=== PATIENT | male | born 1965 | race Caucasian/White ===

== ENCOUNTER 2018-01-27 13:50 | Emergency (ER) | payer MEDICARE, OTHER ==
[~2018-01-27] VITALS: Ht 190.5 cm; Wt 114.7 kg
[~2018-01-27 13:50] MED LIST: ASPI81 PO; CYCL-36 PO; IBUP600T26 PO; NEBI5 PO; NEXI40CA PO; OXYC-68 PO; PLAV75TA PO; ROSU20 PO
[2018-01-27 13:55] VITALS: BP 149/81; PULSE 122; RESP 26; TEMP 98.1; O2SAT 97
--- NOTE | 2018-01-27 14:11 | PD ---
HPI Chief Complaint: GI Complaint Time Seen by Provider: 14:04 Travel History International Travel<30 days: No Contact w/Intl Traveler<30days: No Traveled to known affect area: No History of Present Illness HPI This 52-year-old male is complaining of vomiting and diarrhea. Symptoms started this morning and have been quite severe. He has been unable to hold anything down. He has some abdominal pain when he vomits. He does not recall eating anything unusual. He has not felt very well since he had a bypass a couple of years ago. PFSH Past Medical History Hx Anticoagulant Therapy: Yes Cancer: No Cardiovascular Problems: Yes (HI, [address] WAY BY PASS, STENTS) High Cholesterol: Yes Diabetes: Yes Endocrine: No Genitourinary: No Hepatitis: No Hiatal Hernia: No Immune Disorder: No Musculoskeletal: Yes (ARTHRITIS, HERNIATED NUCLEUS PULPOSIS LUMBAR) Neurologic: Yes (CHARISSE. CHR. LEG & BACK PAIN) Psychiatric: No Respiratory: Yes (SLEEP APNEA/ CPAP) Myocardial Infarction: Yes Thyroid Disease: No Past Surgical History Abdominal Surgery: Yes (RIGHT ING. HERNIA REP) AICD: No Body Medical Devices: PULSE GENERATOR, CARDIAC STENT Cardiac Surgery: Yes (HEART CATH; INSERTION CARDIAC STENT) Ear Surgery: No Endocrine Surgery: No Eye Surgery: No Genitourinary Surgery: No Joint Replacement: No Oral Surgery: Yes (DENTURES; TEETH) Pacemaker: No Thoracic Surgery: No Other Surgery: Yes (HERNIA REPAIR) Social History Alcohol Use: Yes (ONCE A MONTH) Tobacco Use: Yes (1/2 PACK DAILY X 25 YEARS) Substance Use: No Allergies-Medications (Allergen,Severity, Reaction): Coded Allergies: No Known Allergies (Verified Adverse Reaction, Unknown, 01/27/18) Reported Meds & Prescriptions Reported Meds & Active Scripts Active Reported Ibuprofen 600 Mg Tab 600 Mg PO Q6H PRN Oxycodone-Acetaminophen 10-325 mg Tab 1 Tab PO Q6H PRN Aspirin 81 Mg Chew 81 Mg CHEW ONCE Plavix (Clopidogrel Bisulfate) 75 Mg Tab 75 Mg PO DAILY Simvastatin 40 Mg Tab 40 Mg PO HS Nexium (Esomeprazole DR) 40 Mg Capdr 40 Mg PO DAILY Carvedilol 6.25 Mg Tab 6.25 Mg PO BID Review of Systems General / Constitutional: No: Fever, Chills Eyes: No: Diploplia, Blurred Vision HENT: No: Headaches, Vertigo, Rhinorrhea Cardiovascular: No: Chest Pain or Discomfort, Palpitations Respiratory: No: Cough, Shortness of Breath Gastrointestinal: Positive: Vomiting, Diarrhea Genitourinary: No: Frequency, Dysuria Musculoskeletal: No: Myalgias, Arthralgias Skin: No Rash, No Itching Neurologic: No: Weakness, Dizziness Psychiatric: No: Anxiety Hematologic/Lymphatic: No: Easy Bruising Physical Exam Narrative GENERAL: Well-developed male SKIN: Focused skin assessment warm/dry. HEAD: Atraumatic. Normocephalic. EYES: Pupils equal and round. No scleral icterus. No injection or drainage. ENT: No nasal bleeding or discharge. Mucous membranes pink and moist. NECK: Trachea midline. No JVD. CARDIOVASCULAR: Regular rate and rhythm. No murmur appreciated. RESPIRATORY: No accessory muscle use. Clear to auscultation. Breath sounds equal bilaterally. GASTROINTESTINAL: Abdomen soft, non-tender, nondistended. Hepatic and splenic margins not palpable. He has a bump in the abdominal MUSCULOSKELETAL: No obvious deformities. No clubbing. No cyanosis. No edema. NEUROLOGICAL: Awake and alert. No obvious cranial nerve deficits. Motor grossly within normal limits. Normal speech. PSYCHIATRIC: Appropriate mood and affect; insight and judgment normal. Data Data Last Documented VS Vital Signs Date Time Temp Pulse Resp B/P (MAP) Pulse Ox O2 Delivery O2 Flow Rate FiO2 01/27/18 14:57 99.7 109 98 01/27/18 14:22 16 Room Air Orders Orders Complete Blood Count With Diff (01/27/18 14:07) Comprehensive Metabolic Panel (01/27/18 14:07) Sodium Chlor 0.9% 1000 Ml Inj (Ns 1000 M (01/27/18 14:15) Ondansetron Inj (Zofran Inj) (01/27/18 14:15) Prochlorperazine Inj (Compazine Inj) (01/27/18 15:15) Labs Laboratory Tests Test 01/27/18 14:15 White Blood Count 11.1 TH/MM3 Red Blood Count 5.50 MIL/MM3 Hemoglobin 15.1 GM/DL Hematocrit 47.1 % Mean Corpuscular Volume 85.7 FL Mean Corpuscular Hemoglobin 27.6 PG Mean Corpuscular Hemoglobin Concent 32.2 % Red Cell Distribution Width 12.8 % Platelet Count 278 TH/MM3 Mean Platelet Volume 7.4 FL Neutrophils (%) (Auto) 86.8 % Lymphocytes (%) (Auto) 5.8 % Monocytes (%) (Auto) 4.4 % Eosinophils (%) (Auto) 0.8 % Basophils (%) (Auto) 2.2 % Neutrophils # (Auto) 9.7 TH/MM3 Lymphocytes # (Auto) 0.6 TH/MM3 Monocytes # (Auto) 0.5 TH/MM3 Eosinophils # (Auto) 0.1 TH/MM3 Basophils # (Auto) 0.2 TH/MM3 CBC Comment DIFF FINAL Differential Comment Blood Urea Nitrogen 18 MG/DL Creatinine 0.97 MG/DL Random Glucose 148 MG/DL Total Protein 7.5 GM/DL Albumin 3.4 GM/DL Calcium Level 9.1 MG/DL Alkaline Phosphatase 84 U/L Aspartate Amino Transf (AST/SGOT) 40 U/L Alanine Aminotransferase (ALT/SGPT) 34 U/L Total Bilirubin 0.6 MG/DL Sodium Level 136 MEQ/L Potassium Level 4.1 MEQ/L Chloride Level 104 MEQ/L Carbon Dioxide Level 24.4 MEQ/L Anion Gap 8 MEQ/L Estimat Glomerular Filtration Rate 81 ML/MIN [facility] Medical Decision Making Medical Screen Exam Complete: Yes Emergency Medical Condition: Yes Medical Record Reviewed: Yes Differential Diagnosis Differential includes gastroenteritis, food poisoning, dehydration Narrative Course Patient was given IV fluids and Zofran. Still nauseated after the selective Compazine. After this he has been able to tolerate a fluid challenge. Diagnosis Primary Impression: Acute gastroenteritis Additional Instructions: Clear liquid 6 hours Scripts Ondansetron Odt (Zofran Odt) 4 Mg Tab 4 MG SL Q6HR Y for Nausea/Vomiting, #10 TAB 0 Refills Prov: Bijan Orourke MD 01/27/18 Disposition: 01 DISCHARGE HOME Condition: Stable Bijan Orourke MD Jan 27, 2018 14:11
[2018-01-27] MEDS ORDERED: OXYC1TAB36 PO (14:15)
[2018-01-27] MEDS ORDERED: CARV6.252 PO (14:15)
[2018-01-27] MEDS ORDERED: SIMV40TA PO (14:15)
[2018-01-27] MEDS ORDERED: SODIUM CHLOR 0.9% 1000 ML INJ 1,000 ML IV ONE (14:15)
[2018-01-27] MEDS ORDERED: PLAV75TA29 PO (14:15)
[2018-01-27] MEDS ORDERED: NEXI40CA PO (14:15)
[2018-01-27] MEDS ORDERED: ASPI-516 CHEW (14:15)
[2018-01-27] MEDS ORDERED: IBUP-232 PO (14:15)
[2018-01-27] MEDS ORDERED: ONDANSETRON HCL 4 MG/2 ML VIAL IV PUSH ONE (14:15)
[2018-01-27 14:21] LABS: AUTOMATED NEUTROPHIL # 9.7 TH/MM3 (1.8-7.7); BASOPHIL # 0.2 TH/MM3 (0-0.2); BASOPHIL % 2.2 % (0.0-2.0); EOSINOPHIL # 0.1 TH/MM3 (0-0.4); EOSINOPHIL % 0.8 % (0.0-4.0); HEMATOCRIT 47.1 % (39.0-51.0); HEMOGLOBIN 15.1 GM/DL (13.0-17.0); LYMPH % 5.8 % (9.0-44.0); LYMPHOCYTE # 0.6 TH/MM3 (1.0-4.8); MEAN CELL VOLUME 85.7 FL (80.0-100.0); MEAN CORPUSCULAR HEMOGLOBIN 27.6 PG (27.0-34.0); MEAN CORPUSCULAR HGB CONC 32.2 % (32.0-36.0); MEAN PLATELET VOLUME 7.4 FL (7.0-11.0); MONO % 4.4 % (0.0-8.0); MONOCYTE # 0.5 TH/MM3 (0-0.9); NEUT % 86.8 % (16.0-70.0); PLATELET COUNT 278 TH/MM3 (150-450); RED CELL DISTRIBUTION WIDTH 12.8 % (11.6-17.2); WHITE BLOOD COUNT 11.1 TH/MM3 (4.0-11.0)
[2018-01-27 14:22] VITALS: BP 152/90; PULSE 110; RESP 16; TEMP 99.4; O2SAT 94
[2018-01-27 14:30] LABS: CHLORIDE 104 MEQ/L (98-107); SODIUM (NA) 136 MEQ/L (136-145)
[2018-01-27 14:33] LABS: CALCIUM 9.1 MG/DL (8.5-10.1)
[2018-01-27 14:34] LABS: ALBUMIN 3.4 GM/DL (3.4-5.0); BICARBONATE 24.4 MEQ/L (21.0-32.0); BLOOD UREA NITROGEN 18 MG/DL (7-18); GLUCOSE,RANDOM 148 MG/DL (74-106)
[2018-01-27 14:37] LABS: ALT (GPT) 34 U/L (12-78); AST (GOT) 40 U/L (15-37); CREATININE 0.97 MG/DL (0.60-1.30); GLOMERULAR FILTRATION RATE 81 ML/MIN (>89)
[2018-01-27 14:38] LABS: TOTAL BILIRUBIN ADULT 0.6 MG/DL (0.2-1.0); TOTAL PROTEIN 7.5 GM/DL (6.4-8.2)
[2018-01-27 14:40] LABS: ALKALINE PHOSPHATASE 84 U/L (45-117)
[2018-01-27 14:57] VITALS: PULSE 109; TEMP 99.7; O2SAT 98
[2018-01-27] MEDS ORDERED: PROCHLORPERAZINE INJ 10 MG/2 ML VIAL IV PUSH ONE (15:15)
[2018-01-27] MEDS ORDERED: ZOFR4TAB3 SL (15:39)
== END 2018-01-27 16:14 | disposition home or self-care (01) ==
LOC: PHED 13:50
DX: K52.9 Noninfective gastroenteritis and colitis, unspecified (principal); F17.200 Nicotine dependence, unspecified, uncomplicated; E78.00 Pure hypercholesterolemia, unspecified; I25.2 Old myocardial infarction
CPT/HCPCS: 80053; 85025; 96361; 96374; 96375; 99284; J0780; J2405; J7030

== ENCOUNTER 2018-08-30 05:05 | Inpatient (IN) ==
--- NOTE | 2018-08-29 12:26 | MH ---
cc: Darrell Contreras MD DATE OF ADMISSION: 08/30/2018 SCHEDULED ADMISSION: 08/30/2018 ADMITTING DIAGNOSIS: Osteoarthritis, left knee. HISTORY OF PRESENT ILLNESS: The patient is a 53-year-old white male who has experienced greater than a 1-1/2-year history of pain involving his left knee. He had noted the gradual onset of his discomfort, unrelated to injury or unusual activity, and had subsequently undergone orthopedic evaluation, initially being seen by Dr. Garber for which he received cortisone injections to the left knee as well as a course of viscosupplementation. Unfortunately, the patient was unable to appreciate any significant improvement, and because of a change in insurance coverage he was seen in followup disposition by Dr. Hendrickson who treated him with additional cortisone injections as well as several aspirations of his knee joint. He later underwent arthroscopic surgery in 05/2018, again as being completed by Dr. Hendrickson, which apparently included a partial medial and lateral meniscectomy and chondroplasty of the medial compartment and patellofemoral articulation. A synovectomy with resection of synovial plica was reported. Unfortunately, the patient was unable to appreciate any improvement of his symptoms and postoperatively experienced recurrent and consistent clicking sensation of his left knee associated with swelling, for which he was carried through a course of therapy intervention and later fitted with an orthotic support. He experienced progressive pain about his left knee that limited all weightbearing activities and was later seen by the undersigned physician in third opinion evaluation, at which time he described ongoing pain, generalized about his left knee that was limiting all weightbearing activities. He had been taking oxycodone for a longstanding history of low back pain that was not affording any appreciable improvement of his knee symptoms. X-ray studies revealed obvious degenerative changes with [id number] apposition about the medial compartment associated with what appeared to be an osteochondral defect of the adjacent medial femoral condyle. Findings and treatment options were reviewed. The pros and cons of continued conservative management versus operative intervention involving total knee arthroplasty were outlined. Emphasis was made regarding the fact that the decision to proceed with surgery would be left entirely to the patient's discretion. The patient readily admitted that he felt he had exhausted all modes of conservative treatment, and given the progressive nature of his pain and associated incapacitation was ready to proceed with operative treatment as discussed. In compliance with his wishes, he was scheduled for admission at this time in order that the above be accomplished. PAST MEDICAL HISTORY, HOSPITALIZATIONS AND SURGERIES: In addition to the arthroscopic surgery of his left knee as described have included cardiac stent insertion followed by 4-vessel bypass surgery, right inguinal herniorrhaphy, lumbar spine surgery x2, which included fusion, insertion of a spinal cord stimulator, colonoscopy, and overnight observation for medical management of bleeding as related to apparent cardiac study. The patient's medical illnesses include heart disease and hypertension, elevated cholesterol and acid reflux. CURRENT MEDICATIONS: 1. Carvedilol 12.5 mg daily. 2. Lasix 40 mg daily. 3. Lisinopril. 4. Nexium 4 mg daily. 5. Plavix 75 mg daily. 6. Simvastatin 40 mg daily. 7. Aspirin 81 mg tablet daily. 8. Oxycodone 10/325 p.r.n. pain. ALLERGIES: THE PATIENT DENIES ANY KNOWN DRUG ALLERGIES. REVIEW OF SYSTEMS: He does wear glasses. Denies headache, seizure, or syncope. Occasional sinus congestion. No epistaxis. Auditory acuity intact. No tinnitus. No bleeding gums or dysphagia. Complete upper dentures. Denies cough, shortness of breath, upper respiratory infection, pneumonia, or tuberculosis. No angina. He is medically managed for hypertension and is status post cardiac bypass surgery. Appetite is good. Bowel movements are regular. No hepatitis, gallbladder disease or ulcers. There is a positive history of hemorrhoids. No urinary tract infection, no kidney stones, no prostate disease. No previous fractures. No psychiatric illness. His remaining review of systems is unremarkable and noncontributory. FAMILY HISTORY: 18 years, this being a second marriage. His is 65 years of age and described as being in good health. He has 3 daughters by a previous marriage, all indicated to be in good health. Family history is otherwise positive for hypertension, diabetes and heart disease. SOCIAL HISTORY: The patient completed 2 years of a college education. He previously was employed as an automotive person in a manufacturing plant. He has been disabled for the past 12 years as related to his lumbar spine condition. He denies active use of tobacco for the past year, but had been at least a 1 pack per day user for almost 35 years previous. Denies ethanol consumption. PHYSICAL EXAMINATION: VITAL SIGNS: Height 6 feet 3 inches, weight 249 pounds. GENERAL: An alert, oriented, and responsive 53-year-old white male who sits quietly upon the examination table with no obvious distress. HEAD, EARS, EYES, NOSE AND THROAT: Pupils are equally round and reactive to light. Extraocular movements full. Sclerae are clear. External nares clear. External auditory canals clear. Edentulous in the maxillary distribution. Mucous membranes pink and moist. Pharynx clear. NECK: Supple. Active range of motion without appreciable pain. Carotid pulse is palpable bilaterally. Trachea midline. Thyroid without thyroid enlargement. LUNGS: Clear to auscultation and percussion. No CVA tenderness. No discomfort throughout the dorsolumbar spine. HEART: Regular rate and rhythm. No murmur or gallop. ABDOMEN: Soft, nontender. There is a localized mass about the left mid quadrant area that is consistent with his underlying stimulator. Bowel sounds are present. RECTAL: Per primary care physician. EXTREMITIES: Left knee: There is a mild fullness about the knee consistent with an effusion. No joint line tenderness, although the medial aspect of the knee is described as the primary area of discomfort. Limited mobility in the 100-degree range of flexion with pain at the extreme of motion. Apprehension and compression sign negative. No collateral ligamentous laxity. Temi test and drawer sign negative. Pivot shift and Bharath sign positive for medial compartment pain. Straight leg raising unremarkable at 80 degrees. Pronounced antalgic gait. NEUROLOGIC: Cranial nerves 2-12 grossly intact. IMPRESSION: Osteoarthritis, left knee. PLAN: Left total knee arthroplasty. The nature of the planned surgical procedure, the potential complications and risks associated, the expectations of surgery, and a consent form were thoroughly reviewed with the patient prior to admission to the hospital. Alex has indicated his full understanding regarding all of the above and given consent to proceed with treatment as outlined. Medical evaluation and clearance for surgery completed by his primary care physician, , in cardiology clearance per Dr. Brown. MD LADONNA Ley/susie , 11:59 AM , 12:13 PM
[2018-08-30] MEDS ORDERED: Metoprolol Tartrate 25 MG Tablet PO ONE (05:37)
[2018-08-30] MEDS ORDERED: Chlorhexidine Gluconate 2% 1 Pack (2 Cloths) TOPICAL ONE (05:37)
[2018-08-30] MEDS ORDERED: Sodium Chlor 0.9% Inj 500 ML IV.SIG SCH (06:00)
[2018-08-30] MEDS ORDERED: ceFAZolin 2 GM Premix Inj 2 GM/50 ML PIGGYBACK IV.SIG SCH (06:00)
[2018-08-30] MEDS ORDERED: Bupivacaine Liposomal PF 1.3% Inj 20 ML Vial ONE (06:32)
[2018-08-30] MEDS ORDERED: Sodium Chlor 0.9% Inj 73.07 ML, Ropivacaine 0.5% PF Inj 24.63 ML, Ketorolac Inj 30 MG, ... P-ARTICULR SCH ×5 (07:00)
[2018-08-30] MEDS ORDERED: Tranexamic Acid Inj 1,000 MG in Sodium Chlor 0.9% Inj 100 ML IV.SIG SCH ×2 (07:00→10:00)
[2018-08-30] MEDS ORDERED: Sugammadex Inj 200 MG/2 ML Vial IV.PUSH ONE (08:14)
[2018-08-30] MEDS ORDERED: *Meperidine Inj 25 MG/ML Vial PERIprocedural Use ONLY ONE (09:20)
[2018-08-30] MEDS ORDERED: Aluminum/Magnesium/Simethacone Susp 30 ML UDC PO PRN (09:24)
[2018-08-30] MEDS ORDERED: Bisacodyl 10 MG Supp RECTAL PRN (09:24)
[2018-08-30] MEDS ORDERED: Acetaminophen 325 MG Tablet PO PRN (09:24)
[2018-08-30] MEDS ORDERED: Tranexamic Acid Inj 1,000 MG in Sodium Chlor 0.9% Inj 100 ML IV.SIG ONE (09:24)
[2018-08-30] MEDS ORDERED: Zolpidem Tartrate 5 MG Tablet PO PRN (09:24)
[2018-08-30] MEDS ORDERED: Post-op Orders (for Pharmacy) OTHER STA (09:24)
[2018-08-30] MEDS ORDERED: Naloxone Inj 0.4 MG/ML Vial IV.PUSH PRN (09:24)
[2018-08-30] MEDS ORDERED: fentaNYL Citrate Inj 100 MCG/2 ML Ampul ONE ×2 (09:25)
[2018-08-30] MEDS ORDERED: Morphine Inj 4 MG/ML Vial ONE (09:26)
[2018-08-30] MEDS ORDERED: *morphine SULFATE 4 MG/ML PERIprocedure ONLY ONE ×2 (09:49→10:01)
[2018-08-30] MEDS: Morphine Inj 30 MG/30 ML PCA.VIAL PCA PRN (10:00)
--- NOTE | 2018-08-30 10:30 | XR ---
EXAM DATE: 08/30/2018 10:26 AM EDT AGE/SEX: 53 years / Male INDICATIONS: Post op left knee surgery. CLINICAL DATA: This is the patient's initial encounter. Patient reports that signs and symptoms have been present for 1 day and indicates a pain score of 9/10. MEDICAL/SURGICAL HISTORY: None. None. COMPARISON: No prior exams available for comparison. FINDINGS: Views left knee are obtained. Left knee arthroplasty. No hardware loosening or fracture. Catheter see n overlying the left knee. No foreign bodies. Clips are seen within the medial soft tissues adjacent to the tibia. CONCLUSION: Left knee arthroplasty. Electronically signed by: Nikhil Penn MD 08/30/2018 10:29 AM EDT
--- NOTE | 2018-08-30 11:05 | MP ---
cc: Darrell Contreras MD DATE OF OPERATION: 08/30/2018 PREOPERATIVE DIAGNOSIS: Osteoarthritis of the left knee. POSTOPERATIVE DIAGNOSIS: Osteoarthritis of the left knee. PROCEDURE PERFORMED: Left total knee arthroplasty. SURGEON: Dr. Contreras. ANESTHESIA: General endotracheal. INDICATIONS: A 53-year-old white male with a one and a half year history of progressive left knee pain of gradual onset unrelated to injury or unusual activity. He had undergone previous orthopedic evaluation and treatment, which included cortisone injections, viscosupplementation, therapy intervention and subsequent arthroscopic surgery without any appreciable benefit being noted. Followup treatment included additional cortisone injections and several aspirations which apparently did not afford the patient any long-term benefit. He subsequently presented to the undersigned physician in the recent past for a second opinion evaluation, describing ongoing pain about his left knee that was limiting all weightbearing activities. His x-ray studies revealed obvious degenerative changes with [id number] apposition about the medial compartment, associated with what appeared to be an osteochondral defect adjacent to the medial femoral condyle. Findings and treatment options were reviewed. The pros and cons of continuing with conservative management versus operative intervention involving total knee arthroplasty were outlined. Emphasis was made regarding the fact that the decision to proceed with surgery would be left entirely to the patient's discretion. The patient readily admitted that he felt he had exhausted all modes of conservative treatment and given the progressive nature and his pain and associated incapacitation, was ready to proceed with operative treatment as discussed. In compliance with his wishes, he was scheduled for admission at this time in order that the above be accomplished. For further details with regard to this, interested parties would be directed to the admitting documentation and his history and physical examination. FORMAT: Following induction of satisfactory general anesthesia by endotracheal intubation as completed per the Department of Anesthesia, a tourniquet was established on the proximal portion of the left lower extremity. The extremity proper was isolated with a U-drape, thereafter being prepped with Betadine solution and draped into a sterile field in the routine manner. Prior to initiation of the actual procedure, the standard timeout protocol was completed. All parameters were appropriately addressed and confirmed by operating room personnel. The extremity was elevated for approximately 1 minute and the tourniquet, thus inflated to 250 mmHg pressure. A sharp skin incision was initiated midline over the anterior aspect of the knee and developed through underlying subcutaneous tissue with hemostasis maintained by electrocautery. By deepening dissection, the anterior capsule was exposed. A medial capsulotomy completed and the patella subluxed in a lateral orientation. Examination of the joint space, revealed severe degenerative changes, especially involving the medial compartment where there was complete erosion of articular cartilage and underlying subchondral bone exposed. The degenerative process included the patellofemoral articulation and to a lesser degree, the lateral compartment. The articular surface of the patella was resected with power saw. The 3-hole guide was utilized for establishing post-holes. Medial and lateral meniscus structures as well as the anterior cruciate ligament were sharply excised. A centering hole was placed in the distal aspect of the femur, allowing positioning of the intramedullary guide. The distal femoral cutting jig was attached and the distal femur resected. AP measurement noted 70 mm size to be appropriate. The matching cutting block was positioned; anterior, posterior and chamfer cuts were completed. The tibial plateau was thereafter subluxed in an anterior orientation allowing positioning of the extramedullary guide. The tibial plateau was resected and measured with 83 mm sizing determined to be satisfactory. Trial reduction followed utilizing a 70 mm anatomic femoral component, an 83 mm tibial base with 10 mm, 12 mm, and 14 mm bearing inserts was trialed in a sequential fashion. The 14 mm thickness was determined to be the most favorable fit. The knee was readily brought to full extension. There was no laxity with varus and valgus stress at both 0 and 90 degrees flexed posture. Orientation was confirmed as appropriate with measurement of the pelvic guide through the mechanical access of the knee. A trial reduction followed utilizing a 34 mm standard 3 post-patellar button. Once again good tracking was noted with no tendency toward subluxation. All trial components being removed, the remaining portion of the proximal tibia was prepared for insertion of the permanent component. The joint space was thoroughly lavaged with pulsating antibiotic solution, hemostasis maintained by electrocautery. An autogenous bone plug was inserted and the distal femoral guide hole and after preparation and Biomet bone cement was utilized in inserting knee components in a sequential fashion, which included an 83 mm fixed cruciate tibial plate, to which a 14 mm Vanguard tibial bearing insert was secured with locking pierre. The 70 mm Vanguard femoral component was firmly seated onto the distal femur, excess cement being removed. The knee was brought to full extension and thereafter, a 34-mm standard 3 post-patellar button was attached and maintained in place with patellar clamp while cement hardening was completed. Final range of motion assessment noted good tracking stability throughout the knee. Irrigation was repeated with hemostasis maintained. SureTrans drain tubes were inserted through superior stab wounds. The capsule was repaired with 0-Vicryl suture. The remaining portion of the wound was closed in layers in the routine manner, skin margins being reapproximated with a running subcuticular 3-0 Vicryl suture over which Steri-Strips were applied. Xeroform gauze and a bulky dry sterile dressing were placed. Tourniquet was deflated after 51 minutes of tourniquet time. Anesthesia was discontinued and the patient thus transferred to a hospital bed and returned to the recovery room in satisfactory condition, having tolerated his operative procedure well. Estimated blood loss was approximately 150 mL as determined per anesthesia. All implants were of the Biomet. MD LADONNA Ley/malinda , 09:13 AM , 09:25 AM
[2018-08-30] MEDS: ceFAZolin 1 GM Premix Inj 1 GM/50 ML IV.SIG SCH ×2 (12:52→18:21)
--- NOTE | 2018-08-30 13:10 | P.DCO ---
- Diagnosis (1) Degenerative joint disease of knee, left Status: Acute - Physical Therapy Order: Evaluate and treat, Improve ambulation, Strength and gait training - Home Health Nursing Order: Wound care and dressing changes, Nursing assessment with vital signs - Home Health Aide Order: To assist in: Bathing and personal care, instructor kindergarten and meal prep - Window Trimmer Order: To evaluate: Living conditions/environment, Support services Order: To provide: Long range planning, Community services - Case Management Consult Yes - Certification I have seen patient Alex Macdonald on 08/30/18. My clinical findings support the need for the requested home health care services because: Limited ability to care for self, High risk of falls I certify that my clinical findings support that this patient is homebound because: Post-op weakness, Unsteady gait/balance, Unsafe to leave home unassisted (1) Degenerative joint disease of knee, left Qualifiers: Osteoarthritis type: primary Qualified Code(s): M17.12 - Unilateral primary osteoarthritis, left knee
--- NOTE | 2018-08-30 15:57 | P.CON ---
History of Present Illness Service: Hospitalist Consult date: 08/30/18 Requesting Physician: Darrell Contreras Reason for Consult: medical management Primary Care Provider: No Primary Care Physician Chief Complaint: Left knee pain History of Present Illness: Mr. Macdonald is a pleasant 53-year-old male with a history of CAD status post CABG x4, PCI/stent, hypertension who underwent elective left total knee arthroplasty on 08/30/2018. Patient reports left knee pain for more than a year despite conservative management. Post surgery, patient is doing well. He is sitting in his chair. At the time of this interview, patient denies any chest pain, shortness of breath, fever or chills. His pain is well controlled. He denies any changes in bowel or bladder habits. Hospitalist service was consulted for medical management. Past medical history: CAD status post CABG x4, PCI/stent, hypertension, hyperlipidemia, GERD Past surgical history: CABG x4, lumbar spine surgery, spinal cord stimulator placement Social history: Patient denies using illicit drugs, tobacco or alcohol. Family history: Patient's father, mother as well as brother had premature coronary artery disease, hypertension. Review of Systems All other systems reviewed negative except as stated in HPI PMFSH - History History Provided By: Patient - Medical History Medical History: Medical History (Last Reviewed 08/30/18 @ 13:49 by Bhavna Ellington) CAD (coronary artery disease) GERD (gastroesophageal reflux disease) HTN (hypertension) Sleep apnea with use of continuous positive airway pressure (CPAP) Spinal cord stimulator status - Surgical History Surgical History: Surgical History (Last Reviewed 08/30/18 @ 13:49 by Bhavna Ellington) History of back surgery Hx of CABG Hx of arthroscopy of left knee Hx of right inguinal hernia repair Presence of stent of CABG - Tobacco History Second Hand Smoke Exposure: Yes Smoking Status: Former smoker Tobacco Type: Cigarettes - Alcohol History How Often Do You Have a Drink Containing Alcohol: 2 to 4 times a month - Substance Use History Substance History: No History of Abuse - Travel History Recent Travel in the [place] Within the Last 8 Weeks: No Recent Travel Out of the Country Within the Last 8 Weeks: No - Immunization History Tetanus Immunization: <5 Years Hx Influenza Vaccine This Season: No Medications and Allergies Active Medications: Active Medications Acetaminophen (Tylenol) 650 mg PO Q6H PRN PRN Reason: FEVER > 102 F Hydrocodone Bitart/Acetaminophen ([place] 10/325) 1 tab PO Q4H PRN PRN Reason: PAIN LESS THAN 5 ON SCALE Al Hydrox/Mg Hydrox/Simethicone (Mag-Al Plus Susp Liq) 30 ml PO Q6H PRN PRN Reason: INDIGESTION Al Hydroxide/Mg Hydroxide (Milk Of Magnesia Liq) 30 ml PO BID PRN PRN Reason: Mild Constipation Aspirin (Aspirin) 325 mg PO BID [facility] Bisacodyl (Dulcolax Supp) 10 mg RECTAL DAILY PRN PRN Reason: SEVERE CONSITIPATION Carvedilol (Coreg) 12.5 mg PO BID [facility] Tranexamic Acid 1,000 mg/ (Sodium Chloride) 110 mls @ 200 mls/hr IV.SIG ONCE [facility] Stop: 08/31/18 06:59 Last Infusion: 08/30/18 07:40 Dose: Infused Cefazolin Sodium/Dextrose (Ancef 1 Gm Premix Inj) 1 gm in 50 mls @ 100 mls/hr IV.SIG Q6H [facility] Stop: 08/31/18 01:29 Last Infusion: 08/30/18 13:20 Dose: Infused Morphine Sulfate (Morphine Inj) 30 mg in 30 mls @ 0 mls/hr HYDRAULIC RUBBISH COMPACTOR MECHANIC UNSCH PRN PRN Reason: per HYDRAULIC RUBBISH COMPACTOR MECHANIC parameters Stop: 08/31/18 09:23 Last Admin: 08/30/18 10:00 Dose: 0 mls/hr Lactated Ringer's (Lr 1000 Ml Inj) 1,000 mls @ 80 mls/hr IV.CONT .[id number] [facility] Last Admin: 08/30/18 10:00 Dose: 80 mls/hr Lactulose (Lactulose Liq) 30 ml PO DAILY PRN PRN Reason: SEVERE CONSITIPATION Lisinopril (Prinivil) 5 mg PO HS [facility] Miscellaneous Information (Misc Nursing Information) 0 each OTHER UNSCH PRN PRN Reason: SEE DOSE INSTRUCTIONS Miscellaneous Information (Misc Nursing Information) 0 each OTHER UNSCH PRN PRN Reason: SEE LABEL COMMENTS Stop: 08/31/18 09:19 Morphine Sulfate (Morphine Inj) 2 mg IV.PUSH Q3H PRN PRN Reason: BREAKTHROUGH PAIN Naloxone HCl (Narcan Inj) 0.4 mg IV.PUSH UNSCH PRN PRN Reason: Resp rate < 10 Ondansetron HCl (Zofran Inj) 4 mg IV.PUSH Q6H PRN PRN Reason: NAUSEA OR VOMITING Pantoprazole Sodium (Protonix) 40 mg PO BID [facility] Povidone Iodine (Betadine 7.5% Scrub) 1 applicatio TOPICAL ONCE [facility] Stop: 09/03/18 05:59 Last Admin: 08/30/18 05:58 Dose: Not Given Pravastatin Sodium (Pravachol) 80 mg PO QPM [facility] Senna/Docusate Sodium (Janeth-Colace) 1 tab PO BID [facility] Sennosides (Senokot) 17.2 mg PO BID PRN PRN Reason: Moderate Constipation Sodium Chloride (Ns Flush) 2 ml IV.FLUSH BID GREG Sodium Chloride (Ns Flush) 2 ml IV.FLUSH UNSCH PRN PRN Reason: FLUSH AFTER USING IV ACCESS Zolpidem Tartrate (Ambien) 5 mg PO HS PRN PRN Reason: INSOMNIA Allergies Allergy/AdvReac Type Severity Reaction Status Date / Time No Known Allergies Allergy Verified 08/30/18 05:38 Home Medications Medication Instructions Recorded Confirmed Type aspirin [Aspir-81] 81 mg PO DAILY 08/14/18 08/30/18 History carvedilol 12.5 mg PO BID 08/14/18 08/30/18 History clopidogrel [Plavix] 75 mg PO DAILY 08/14/18 08/30/18 History esomeprazole magnesium [Nexium] 40 mg PO BID 08/14/18 08/30/18 History lisinopril 5 mg PO HS 08/14/18 08/30/18 History oxycodone-acetaminophen 1 tab PO Q6H PRN 08/14/18 08/30/18 History simvastatin 40 mg PO QPM 08/14/18 08/30/18 History Physical Exam Vital signs: Vital Signs 08/30/18 05:42 08/30/18 06:14 08/30/18 09:14 Temperature 98.9 F 99.0 F Pulse Rate 95 H 84 77 Respiratory Rate 20 12 Blood Pressure 120/80 104/65 Pulse Oximetry 95 96 08/30/18 09:30 08/30/18 09:45 08/30/18 10:00 Temperature Pulse Rate 84 90 91 H Respiratory Rate 11 L 12 16 Blood Pressure 107/63 108/64 105/61 Pulse Oximetry 92 L 94 L 95 08/30/18 10:10 08/30/18 10:15 08/30/18 10:40 Temperature 98.7 F Pulse Rate 89 Respiratory Rate 14 16 14 Blood Pressure 115/66 Pulse Oximetry 94 L 08/30/18 12:00 08/30/18 13:00 08/30/18 13:43 Temperature 97.7 F Pulse Rate 97 H 92 H 78 Respiratory Rate 16 16 18 Blood Pressure 113/74 117/73 106/64 Pulse Oximetry 96 94 L Intake & Output 08/29/18 08/30/18 08/30/18 18:59 06:59 18:59 Intake Total 860 / 860 Output Total 150 / 150 Balance 710 / 710 Weight 112.5 kg 112.5 kg Intake: IV 320 / 320 Cyklokapron Inj 1,000 MG In NS 220 / 220 Inj 100 ML @ 200 mls/hr IV.SIG ONCE ONE Rx#:[id number] Ancef 1 GM Premix Inj 1 gm In 50 / 50 50 ml @ 100 mls/hr IV.SIG Q6H [facility] Rx#:[id number] Ancef 2 GM Premix Inj 2 gm In 50 / 50 50 ml @ 100 mls/hr IV.SIG COMPENSATION MANAGER [facility] Rx#:[id number] Anesthesia Amount 540 / 540 Output: Estimated Blood Loss 150 / 150 Other: Weight On Admission 112.5 kg Narrative: GENERAL: This is a well-nourished, well-developed patient, in no apparent distress. SKIN: No rashes, ecchymoses or lesions. Warm and dry. Surgical scar noted over sternum. HEAD: Atraumatic. Normocephalic. No temporal or scalp tenderness. EYES: Pupils equal round and reactive. No injection or drainage. ENT: Nose without bleeding, purulent drainage or septal hematoma. Airway patent. NECK: Trachea midline. No lymphadenopathy. Supple, nontender, no meningeal signs. CARDIOVASCULAR: Regular rate and rhythm without murmurs, gallops, or rubs. No JVD. RESPIRATORY: Clear to auscultation. Breath sounds equal bilaterally. No wheezes , rales, or rhonchi. GASTROINTESTINAL: Abdomen soft, non-tender, nondistended. No guarding. MUSCULOSKELETAL: Extremities without clubbing, cyanosis, or edema. Status post left total knee arthroplasty. NEUROLOGICAL: Awake and alert. Cranial nerves II through XII intact. No focal neurological deficits. Normal speech. Assessment and Plan - Plan Mr. Macdonald is a pleasant 53-year-old male with a history of CABG x4, PCI/stent, hypertension who underwent elective left total knee arthroplasty today 08/30/2018. Hospital service was consulted for medical management. Left knee osteoarthritis -Status post left total knee arthroplasty. -Continue morphine, [place] for pain management -Bowel regimen -Aspirin 325 mg twice daily Coronary artery disease Hypertension Hyperlipidemia -Status post PCI/stent, CABG x4 -Continue carvedilol 12.5 mg p.o. twice daily, lisinopril 5 mg p.o. nightly, pravastatin 80 mg p.o. every afternoon -BP within normal to slightly low range. -It might be better to switch statin to Lipitor or Crestor. Will discuss with patient so that he can discuss with his PCP/Call Or Contact Centre Coach. GERD -continue Protonix. Full code. Aspirin 325mg BID for post-surgery DVT prophylaxis. Thank you for the consult. We will continue to follow this patient with you.
[2018-08-30] MEDS: Aspirin 325 MG Tablet PO SCH (21:41)
[2018-08-30] MEDS: Senna/Docusate Sodium 8.6/50 MG Tablet PO SCH (21:41)
[2018-08-30] MEDS: Lisinopril 5 MG Tablet PO SCH (21:42)
[2018-08-30] MEDS: Carvedilol 12.5 MG Tablet PO SCH (21:43)
[2018-08-31] MEDS: ceFAZolin 1 GM Premix Inj 1 GM/50 ML IV.SIG SCH (01:26)
[2018-08-31 05:45] LABS: Hematocrit 38.1 % (39.0-51.0); Hemoglobin 12.5 gm/dL (13.0-17.0)
[2018-08-31] MEDS: Morphine Inj 30 MG/30 ML PCA.VIAL PCA PRN (06:19)
--- NOTE | 2018-08-31 09:00 | P.PN ---
Subjective Interval history: Follow-up for left knee osteoarthritis status post left TKA,, CAD. Patient is currently sitting in his chair. Denies any chest pain, shortness of breath, fever or chills. However he complains of left knee pain. His morphine BEAM SEALER pump started beeping around 3 AM and continues to be. Patient was somewhat upset regarding BEAM SEALER pump. Physical Exam Vital signs: Vital Signs 08/30/18 09:14 08/30/18 09:30 08/30/18 09:45 Temperature 99.0 F Pulse Rate 77 84 90 Respiratory Rate 12 11 L 12 Blood Pressure 104/65 107/63 108/64 Pulse Oximetry 92 L 94 L 08/30/18 10:00 08/30/18 10:10 08/30/18 10:15 Temperature 98.7 F Pulse Rate 91 H 89 Respiratory Rate 16 14 16 Blood Pressure 105/61 115/66 Pulse Oximetry 95 94 L 08/30/18 10:40 08/30/18 12:00 08/30/18 13:00 Temperature Pulse Rate 97 H 92 H Respiratory Rate 14 16 16 Blood Pressure 113/74 117/73 Pulse Oximetry 96 08/30/18 13:43 08/30/18 16:00 08/30/18 20:00 Temperature 97.7 F 97.4 F L 97.7 F Pulse Rate 78 76 75 Respiratory Rate 18 18 18 Blood Pressure 106/64 107/57 L 117/61 Pulse Oximetry 94 L 95 96 08/31/18 00:00 08/31/18 03:15 08/31/18 04:00 Temperature 97.9 F 97.6 F Pulse Rate 71 77 Respiratory Rate 18 18 18 Blood Pressure 107/67 141/82 H Pulse Oximetry 95 99 Intake & Output 08/30/18 08/31/18 08/31/18 18:59 06:59 18:59 Intake Total 1740 / 1740 1050 / 1050 Output Total 150 / 150 840 / 840 Balance 1590 / 1590 210 / 210 Weight 112.5 kg 112.5 kg Intake: IV 370 / 370 1050 / 1050 LR 1000 mL Inj 1,000 ML @ 80 1000 / 1000 mls/hr IV.CONT .[id number] [facility] Rx# :[id number] Cyklokapron Inj 1,000 MG In NS 220 / 220 Inj 100 ML @ 200 mls/hr IV.SIG ONCE ONE Rx#:[id number] Ancef 1 GM Premix Inj 1 gm In 100 / 100 50 / 50 50 ml @ 100 mls/hr IV.SIG Q6H [facility] Rx#:[id number] Ancef 2 GM Premix Inj 2 gm In 50 / 50 50 ml @ 100 mls/hr IV.SIG STRATEGIC ALLIANCES MANAGER [facility] Rx#:[id number] Oral 830 / 830 Anesthesia Amount 540 / 540 Output: Urine 600 / 600 Estimated Blood Loss 150 / 150 Wound Drainage 240 / 240 # 1 Left 240 / 240 Other: # Voids 0 Date of Last Bowel Movement 08/29/18 08/29/18 # Bowel Movements 0 Narrative: GENERAL: Alert, oriented x3, NAD. SKIN: Warm and dry. HEAD: Normocephalic. EYES: No scleral icterus. No injection or drainage. NECK: Supple, trachea midline. No JVD or lymphadenopathy. CARDIOVASCULAR: Regular rate and rhythm without murmurs, gallops, or rubs. RESPIRATORY: Breath sounds equal bilaterally. No accessory muscle use. GASTROINTESTINAL: Abdomen soft, non-tender, nondistended. MUSCULOSKELETAL: No cyanosis, or edema. Status post left total knee arthroplasty. BACK: Nontender without obvious deformity. No CVA tenderness. Results - Labs CBC & Chem 7: 08/31/18 04:51 Laboratory Results - last 24 hr 08/31/18 04:51 Hgb 12.5 L Hct 38.1 L - Imaging Impressions Knee X-Ray 08/30/18 09:20 CONCLUSION: Left knee arthroplasty. - Procedures 08/30/2018 Osteoarthritis of the left knee. Assessment and Plan - Plan Mr. Macdonald is a pleasant 53-year-old male with a history of CABG x4, PCI/stent, hypertension who underwent elective left total knee arthroplasty today 08/30/2018. Hospital service was consulted for medical management. Left knee osteoarthritis -Status post left total knee arthroplasty. -Continue morphine, [place] for pain management. BEAM SEALER pump discontinued. -Bowel regimen -Aspirin 325 mg twice daily Coronary artery disease Hypertension Hyperlipidemia -Status post PCI/stent, CABG x4 -Continue carvedilol 12.5 mg p.o. twice daily, lisinopril 5 mg p.o. nightly, pravastatin 80 mg p.o. every afternoon -BP within reasonable range. -It might be better to switch statin to Lipitor or Crestor. Patient will discuss with his PCP. -No acute cardiac issues. GERD -continue Protonix. Full code. Aspirin 325mg BID for post-surgery DVT prophylaxis.
[2018-08-31] MEDS: Aspirin 325 MG Tablet PO SCH ×2 (09:22→20:20)
[2018-08-31] MEDS: Carvedilol 12.5 MG Tablet PO SCH ×2 (09:22→20:20)
[2018-08-31] MEDS: Senna/Docusate Sodium 8.6/50 MG Tablet PO SCH ×2 (09:22→20:20)
[2018-08-31] MEDS: Morphine Sulfate Inj 2 MG/ML Vial IV.PUSH PRN (20:16)
[2018-08-31] MEDS: Lisinopril 5 MG Tablet PO SCH (20:20)
[2018-09-01] MEDS: Morphine Sulfate Inj 2 MG/ML Vial IV.PUSH PRN ×2 (00:28→03:39)
--- NOTE | 2018-09-01 07:12 | MD ---
cc: Darrell Contreras MD DATE OF DISCHARGE: 09/01/2018 ADMITTING DIAGNOSIS: Osteoarthritis, left knee. DISCHARGE DIAGNOSIS: Osteoarthritis, left knee. HISTORY: A 53-year-old white male with a 1-1/2-year history of progressive left knee pain as related to osteoarthritis. He had undergone an extensive course of conservative treatment in the past, which also included arthroscopic surgery that unfortunately did not provide him with any appreciable benefit. He became increasingly more symptomatic with pain with the passage of time and subsequently presented to the office and the undersigned physician for a second opinion evaluation. His x-ray studies revealed obvious degenerative changes with [id number] apposition about the medial compartment, associated with a possible osteochondral defect involving the medial femoral condyle. Findings and treatment options were reviewed. The pros and cons of continuing with conservative management versus operative intervention that would involve total knee arthroplasty were outlined in detail. Emphasis was made regarding the fact that the decision to proceed with surgery would be left entirely to the patient's discretion. The patient felt that he had exhausted all modes of conservative treatment; and given the progressive nature of his pain and associated incapacitation, he was ready to proceed with such treatment as discussed. In compliance with his wishes, he was scheduled for admission at this time in order that the above be accomplished. For additional details with regard to his history of the present illness, interested parties would be directed to his admitting documentation involving his history and physical examination. PHYSICAL EXAMINATION: His physical examination at the time of admission revealed a fullness about the left knee consistent with an effusion. There was no joint line tenderness. The medial aspect of the knee was described as the primary discomfort. Limited mobility in the 100-degree range of flexion with pain at the extremes of motion. Apprehension and compression sign negative. No collateral ligamentous laxity. Temi test and drawer sign negative. Pivot shift and Bharath sign positive for medial compartment pain. Straight-leg raising unremarkable at 80 degrees. Pronounced antalgic gait. HOSPITAL COURSE: Prior to admission to the hospital, the patient had undergone medical evaluation and clearance for surgery as completed by his primary care physician. Additional cardiology clearance per Dr. Brown. He was taken to the operating room on 08/30/2018; and on that date, underwent a left total knee arthroplasty completed in an uncomplicated manner. The patient was noted to have tolerated his operative procedure well. His postoperative course stable thereafter. Hemoglobin and hematocrit assessment postoperatively was 12.5 and 38.1 respectively. The patient was progressively mobilized under the guidance of physical therapy, being permitted weightbearing to tolerance about the left lower extremity. Followup examination of his surgical wound noted to be intact, healing favorably with no evidence of infection. Medical followup per the hospitalist service. DVT prophylaxis initiated. Clamp Operator consulted to assist with discharge planning. The patient had expressed his desire to be discharged home and continue his rehabilitation on outpatient basis. Plans were finalized in this regard; and pending medical clearance he was scheduled for discharge on the second postoperative day, at which time he was noted to be making favorable progress with regard to his initial rehabilitation program. He was scheduled to be seen in office followup in approximately 4 weeks. CONDITION AT THE TIME OF DISCHARGE: Stable. PROGNOSIS: Favorable. DIAGNOSTIC DATA: Hemoglobin and hematocrit assessment postoperatively 12.5 and 38.1 respectively. DISCHARGE MEDICATIONS: Included hydrocodone 10/325, #30. The patient was also to resume Plavix as he had taken preoperatively. MD LADONNA Ley/maisha , 06:42 AM , 06:49 AM
[2018-09-01] MEDS: Aspirin 325 MG Tablet PO SCH (09:34)
[2018-09-01] MEDS: Senna/Docusate Sodium 8.6/50 MG Tablet PO SCH (09:34)
[2018-09-01] MEDS: Carvedilol 12.5 MG Tablet PO SCH (09:34)
--- NOTE | 2018-09-01 10:03 | P.PN ---
Subjective Interval history: Follow-up for left knee osteoarthritis status post left TKA,, CAD. Patient is doing well. No acute concerns. Physical Exam Vital signs: Vital Signs 08/31/18 11:01 08/31/18 12:00 08/31/18 16:00 Temperature 98 F 97.7 F Pulse Rate 75 81 Respiratory Rate 16 17 Blood Pressure 119/69 136/75 Pulse Oximetry 98 97 97 08/31/18 20:00 09/01/18 00:00 Temperature 98.8 F 97.3 F L Pulse Rate 89 89 Respiratory Rate 19 18 Blood Pressure 142/83 H 137/74 Pulse Oximetry 96 96 Intake & Output 08/31/18 09/01/18 09/01/18 18:59 06:59 18:59 Output Total 810 / 810 Balance -810 / -810 Weight 112.7 kg Output: Urine 700 / 700 Wound Drainage 110 / 110 # 1 Left 110 / 110 Other: # Voids 5 3 Date of Last Bowel Movement 08/20/18 08/31/18 Narrative: GENERAL: Alert, oriented x3, NAD. SKIN: Warm and dry. HEAD: Normocephalic. EYES: No scleral icterus. No injection or drainage. NECK: Supple, trachea midline. No JVD or lymphadenopathy. CARDIOVASCULAR: Regular rate and rhythm without murmurs, gallops, or rubs. RESPIRATORY: Breath sounds equal bilaterally. No accessory muscle use. GASTROINTESTINAL: Abdomen soft, non-tender, nondistended. MUSCULOSKELETAL: No cyanosis, or edema. Status post left total knee arthroplasty. BACK: Nontender without obvious deformity. No CVA tenderness. Results - Labs CBC & Chem 7: 08/31/18 04:51 - Procedures 08/30/2018 Osteoarthritis of the left knee. Assessment and Plan - Plan Mr. Macdonald is a pleasant 53-year-old male with a history of CABG x4, PCI/stent, hypertension who underwent elective left total knee arthroplasty today 08/30/2018. Hospital service was consulted for medical management. Left knee osteoarthritis -Status post left total knee arthroplasty. -Continue morphine, [place] for pain management. OPERATING MANAGER pump discontinued. -Bowel regimen -Aspirin 325 mg twice daily Coronary artery disease Hypertension Hyperlipidemia -Status post PCI/stent, CABG x4 -Continue carvedilol 12.5 mg p.o. twice daily, lisinopril 5 mg p.o. nightly, pravastatin 80 mg p.o. every afternoon -BP within reasonable range. -It might be better to switch statin to Lipitor or Crestor. Patient will discuss with his PCP. -No acute cardiac issues. GERD -continue Protonix. Full code. Aspirin 325mg BID for post-surgery DVT prophylaxis. Patient is being discharged today.
[2018-09-01 12:56] VITALS: BP 107/52; PULSE 88; RESP 23; TEMP 97.5; O2SAT 92
== END 2018-09-01 13:35 | disposition home health service (06) ==
LOC: HSDC 05:05 → EDSTATUS 07:00 → HSDI 09:31 → N06 13:32
PROVIDERS: ADMIT Orthopaedic Surgery; ATTEND Orthopaedic Surgery